=== PATIENT | female | born 1965 | race Caucasian/White ===

== ENCOUNTER 2023-04-25 20:14 | Emergency (ER) | payer OTHER ==
[2023-04-25 20:34] VITALS: BP 145/67; PULSE 86; RESP 18; TEMP 98.3; BMI 32.8
== END 2023-04-26 00:19 | disposition home or self-care (01) ==
LOC: JER 20:14
DX: H53.9 Unspecified visual disturbance (principal); R42 Dizziness and giddiness
CPT/HCPCS: 70450-TC; 93005; 93010; 99284-25